=== PATIENT | female | born 1970 | race American Indian/Alaskan Native ===

== ENCOUNTER 2017-02-18 06:23 | Day surgery (SDC) | payer MEDICAID ==
--- NOTE | 2017-02-18 07:31 | Anesthesia Day of Surgery ---
Anesthesia Day of Surgery - Day of Surgery Patient Examined: Yes Patient H&P Reviewed: Yes Patient is NPO: Yes
--- NOTE | 2017-02-18 07:31 | Anesthesia Consultation ---
Anesthesia Consult and Med Hx Date of service: 02/18/17 - Airway Anesthetic Teeth Evaluation: Good ROM Head & Neck: Adequate Mental/Hyoid Distance: Adequate Mallampati Class: Class II Intubation Access Assessment: Probably Good - Pulmonary Exam CTA: Yes - Cardiac Exam Cardiac Exam: RRR - Pre-Operative Health Status ASA Pre-Surgery Classification: ASA3 Proposed Anesthetic Plan: MAC - Pulmonary Hx Smoking: No SOB: Yes (upon exertion) Hx Sleep Apnea: No - Cardiovascular System Hx Hypertension: No Hx Peripheral Vascular Disease: No (LE swelling) - Central Nervous System Hx Back Pain: Yes Hx Psychiatric Problems: Yes (anxiety, suicidal thoughts, depression, OCD) - Gastrointestinal Hx Gastroesophageal Reflux Disease: Yes - Endocrine Hx Renal Disease: No Hx Insulin Dependent Diabetes: No - Hematic Hx Anemia: No Hx Sickle Cell Disease: No - Other Systems Hx Alcohol Use: No Hx Substance Use: No Hx Cancer: No Hx Obesity: Yes
[2017-02-18] MEDS ORDERED: DIPRIVAN 10 MG/ML IV ONE ×3 (07:35)
[2017-02-18] MEDS ORDERED: NACL 0.9% 1000 ML ONE (08:00)
[2017-02-18] MEDS ORDERED: XYLOCAINE MPF 2% ONE (08:30)
[2017-02-18] MEDS ORDERED: NACL 0.9% 1000 ML 1,000 ML IV SCH (09:00)
--- NOTE | 2017-02-18 09:01 | Discharge Summary ---
Providers - Providers Attending physician: DEONTE CASTILLO Hospitalization Condition: Good Procedures: EGD Hospital course: Pt underwent EGD and tolerated it. She was discharged home. Disposition: DC-01 TO HOME OR SELFCARE Core Measure Documentation - Palliative Care Palliative Care/ Comfort Measures: Not Applicable - Core Measures Any of the following diagnoses?: none Exam - Physical Exam Narrative exam: no change from previous - Constitutional Vitals: Temp Pulse Resp BP Pulse Ox 97.9 F 69 22 100/63 100 02/18/17 08:29 02/18/17 08:44 02/18/17 08:44 02/18/17 08:44 02/18/17 08:44 Plan Diet: other (high protein low carb)
--- NOTE | 2017-02-18 09:03 | Operative Report ---
Operative Report Operative Report: OPERATIVE REPORT - EGD DATE 02/18/17 SURGERY: Upper endoscopy. SURGEON: Dr. Jones ANIMAL SCIENTIST: Ladi Montoya DO PRE OP DX: dyspepsia POST OP DX: small hiatal hernia TYPE OF ANESTHESIA: MAC. ESTIMATED BLOOD LOSS: None. COMPLICATIONS: None. SPECIMENS REMOVED: None. FINDINGS: 1. Small hiatal hernia. 2. Otherwise, normal esophagus, stomach INDICATIONS:INDICATION FOR PROCEDURE: Patient is a 47-year-old female with a long history of morbid obesity. She is planned to have a weight loss procedure and is here for preoperative planning EGD to asses the anatomy of her stomach. PROCEDURE DETAILS: After consent was reviewed, patient was taken back to the operating room where patient was placed in the left lateral decubitus position and a bite block was placed in the mouth. After a time-out was called, MAC anesthesia was initiated. I then passed the endoscope into her oropharynx, into her esophagus, visualized the entire esophagus, which was all within normal limits. I then visualized the stomach and there were no abnormalities I could clearly visualize. I then retroflexed the scope in the stomach and visualized the hiatus and I could see a small hiatal hernia. I then desufflated the stomach and removed the endoscope. Patient tolerated procedure well and was transferred to recovery room in good and stable condition.
[2017-02-18 09:05] VITALS: BP 120/76
--- NOTE | 2017-02-18 12:46 | Post Anesthesia Evaluation ---
- Post Anesthesia Evaluation Patient Participated: Yes Airway Patent: Yes Stable Respiratory Function: Yes Nausea/Vomiting: No Temp > 96.8F: Yes Pain Manageable: Yes Adequeate Hydration: Yes Anesthesia Complications: No Block Receding Appropriately: Not Applicable Patient on Ventilator: No
== END 2017-02-18 06:24 | disposition home or self-care (01) ==
LOC: GIO 06:23
PROVIDERS: ATTEND Specialist
DX: K44.9 Diaphragmatic hernia without obstruction or gangrene (principal); E66.01 Morbid (severe) obesity due to excess calories; F41.9 Anxiety disorder, unspecified; K21.9 Gastro-esophageal reflux disease without esophagitis; F32.9 Major depressive disorder, single episode, unspecified; M19.90 Unspecified osteoarthritis, unspecified site; Z90.710 Acquired absence of both cervix and uterus; Z98.890 Other specified postprocedural states; Z68.42 Body mass index [BMI] 45.0-49.9, adult
CPT/HCPCS: 43235; J2704; J7030

== ENCOUNTER 2017-02-25 09:43 | Inpatient (IN) | payer MEDICAID ==
--- NOTE | 2017-02-18 10:12 | Anesthesia Consultation ---
Anesthesia Consult and Med Hx Date of service: 02/18/17 - Airway Anesthetic Teeth Evaluation: Good ROM Head & Neck: Adequate Mental/Hyoid Distance: Adequate Mallampati Class: Class II Intubation Access Assessment: Probably Good - Pulmonary Exam CTA: Yes - Cardiac Exam Cardiac Exam: RRR - Pre-Operative Health Status ASA Pre-Surgery Classification: ASA2 Proposed Anesthetic Plan: General - Pulmonary Hx Smoking: No Hx Sleep Apnea: Yes - Cardiovascular System Hx Hypertension: No - Endocrine Hx Non-Insulin Dependent Diabetes: No - Other Systems Hx Obesity: Yes
[~2017-02-25 09:43] MED LIST: ANCEF/STERILE WATER 2 GM/20 ML 2 GM/20 ML SYRINGE IV NR; APRESOLINE IV PRN; DILAUDID IV PRN; FLAGYL 500 MG/100 ML 500 MG/100 ML BAG IV NR; LACTATED RINGERS 1,000 ML IV SCH; LOVENOX SUB-Q NR; NACL 0.9% IR ONE; NORCO PO PRN; PEPCID IV NR; REGLAN IV PRN; TRANSDERM-SCOP TD NR; VERSED IV NR; XYLOCAINE 1% 20 mL INFILTRATI ONE; ZOFRAN IV PRN
[2017-02-25] MEDS ORDERED: NACL BACTERIOSTATIC INFILTRATI ONE (10:34)
[2017-02-25 10:52] LABS: Basophils % (Auto) 0.9 % (0.0-1.8); Eosinophils % (Auto) 2.2 % (0.0-4.3); Hematocrit 39.4 % (30.3-42.9); Hemoglobin 13.9 gm/dl (10.1-14.3); Mean Corpuscular HGB Conc 35 % (30-34); Mean Corpuscular Hemoglobin 31 pg (28-32); Mean Corpuscular Volume 89 fl (79-97); Platelet Count 262 K/mm3 (140-440); Red Blood Count 4.42 M/mm3 (3.65-5.03); Red Cell Distribution Width 13.9 % (13.2-15.2); White Blood Count 3.8 K/mm3 (4.5-11.0)
[2017-02-25 11:14] LABS: Alanine Aminotransferase 13 units/L (7-56); Albumin 3.6 g/dL (3.9-5); Alkaline Phosphatase 62 units/L (35-129); Anion Gap 14 mmol/L; BUN/Creatinine Ratio 10; Blood Urea Nitrogen 6 mg/dL (7-17); Calcium 8.5 mg/dL (8.4-10.2); Carbon Dioxide 27 mmol/L (22-30); Chloride 102.5 mmol/L (98-107); Glucose 107 mg/dL (65-100); Sodium 139 mmol/L (137-145); Total Protein 7.2 g/dL (6.3-8.2)
[2017-02-25] MEDS ORDERED: DIPRIVAN 10 MG/ML IV ONE (12:32)
[2017-02-25] MEDS ORDERED: DILAUDID ONE (12:33)
--- NOTE | 2017-02-25 12:42 | Anesthesia Day of Surgery ---
Anesthesia Day of Surgery - Day of Surgery Patient Examined: Yes Patient H&P Reviewed: Yes Patient is NPO: Yes
[2017-02-25] MEDS ORDERED: MARCAINE 0.5% 30 ML INFILTRATI ONE (12:51)
[2017-02-25] MEDS ORDERED: XYLOCAINE 1% 20 mL ONE (12:51)
[2017-02-25] MEDS ORDERED: NACL 0.9% IR ONE (12:56)
[2017-02-25] MEDS ORDERED: MARCAINE 0.5% INFILTRATI ONE (12:56)
[2017-02-25] MEDS ORDERED: XYLOCAINE 1% 20 mL INFILTRATI ONE (12:56)
[2017-02-25 13:08] LABS: Bilirubin,Urine NEG (Negative); Blood,Urine NEG (Negative); Ketones,Urine NEG (Negative); Leukocyte Esterase,Urine NEG (Negative); Mucus,Urine FEW /HPF; Nitrite,Urine NEG (Negative); Protein,Urine <15 mg/dL mg/dL (Negative); Urobilinogen,Urine < 2.0 mg/dL (<2.0)
[2017-02-25 13:16] LABS: WBC,Urine < 1.0 /HPF (0.0-6.0)
[2017-02-25] MEDS ORDERED: DECADRON ONE (13:33)
[2017-02-25] MEDS ORDERED: XYLOCAINE MPF 2% ONE (13:33)
[2017-02-25] MEDS ORDERED: ZEMURON IV ONE ×2 (13:33→14:29)
[2017-02-25] MEDS ORDERED: NEOSTIGMINE ONE ×2 (14:12→14:53)
[2017-02-25] MEDS ORDERED: LACTATED RINGERS 1,000 ML ONE (14:29)
[2017-02-25] MEDS ORDERED: NEO SYNEPHRINE/NS Syringe(OR USE) IV ONE (14:30)
[2017-02-25] MEDS ORDERED: ROBINUL ONE ×2 (14:52)
[2017-02-25] MEDS ORDERED: ZOFRAN ONE (14:53)
[2017-02-25] MEDS ORDERED: TORADOL ONE (14:53)
--- NOTE | 2017-02-25 17:17 | Post Anesthesia Evaluation ---
- Post Anesthesia Evaluation Patient Participated: Yes Airway Patent: Yes Stable Respiratory Function: Yes Nausea/Vomiting: No Temp > 96.8F: Yes Pain Manageable: Yes Adequeate Hydration: Yes Anesthesia Complications: No
[2017-02-25] MEDS: MYLICON PO PRN ×2 (18:03→22:59)
--- NOTE | 2017-02-25 19:53 | Operative Report ---
Operative Report Operative Report: Operative Report DATE OF PROCEDURE: 02/25/17 PREOPERATIVE DIAGNOSES: Morbid obesity, hiatal hernia POSTOPERATIVE DIAGNOSES: 1.same as pre-op SURGEON: Dr. Jones COCKTAIL WAITRESS: iDlip Livingston DO PROCEDURE: 1. laparoscopic sleeve gastrectomy 2. laparoscopic hiatal hernia repair 3.Lysis of adhesions ANESTHESIA: General. ESTIMATED BLOOD LOSS: <5 mL. COMPLICATIONS: None. SPECIMEN: Partial gastrectomy. FINDINGS: 1. hiatal hernia 2. adhesions 3. large infrabdominal/pelvic hernia. INDICATION FOR PROCEDURE: Patient is a 47-year-old female with a long history of morbid obesity. She has tried multiple efforts at weight loss without ocean transportation intermediary success. She is here today for sleeve gastrectomy. She has a hx of hysterectomy and subsequent umbilical hernia that was repaired with mesh. PROCEDURE IN DETAIL: After consent was reviewed, patient was taken back to the operating room, where patient was placed supine on the bed with both arms out. The patient's legs were doubly strapped to the bed. Patient had a foot board in place. Patient had a body warmer placed by anesthesia. Patient was then prepped and draped in normal sterile surgical fashion. After a time-out was called, I made a stab incision in the left upper quadrant umbilicus and placed a Veress needle through this incision and insufflated the abdomen to 18 mmHg pressure. Once the abdomen was adequately insuflated I placed a 5mm trocar into the site of the previous veress needle. I then placed a 45-degree scope through this port and inspected the abdomen. Omental adhesions were noted along the anterior abdominal wall attached to the previous placed mesh. Also noted was a large inferior abdominal wall hernia near the pelvis. There was no injury on entry of the abdomen. I then placed two 5-mm ports in the right upper quadrant, one along the anterior axillary line and 1 subxiphoid below the costovertebral angle. I then placed left upper quadrant port along the anterior axillary line in a similar fashion. I then placed the liver retractor through the subxiphoid port. The adhesions were taken down via a ligasure device without any injury to the surrounding bowel. Once the adhesions were removed I inserted a 15mm port at the umbilicus. Next I placed the patient in full reverse Trendelenburg. The right and left crura were skeletonized accentuating a small hiatal hernia. An anterior cruraplasty was perfromed with a figure-of-8 stitch using [id number] with 0 ethibond suture to reapproximate the crura. I then identified the pylorus and then counted off 6cm from the pylorus. I then used a LigaSure cutting device to enter into the lesser sac. At that point and then I took down the short gastrics all the way up to the left rachell. Then I had anesthesia pass down a 36-Swiss bougie along the lesser curvature of the stomach. I made sure everything else was out of the abdomen except the bougie. I then created my gastric sleeve using a 60-mm laparoscopic stapler. . The sleeve looked good without any twisting or torsion. I then had anesthesia to remove the bougie. Hemostasis was obtained along the staple line. I then used Tiseel along the entirety of the staple line and some on the liver. I then removed liver grasper and took it off the field. The stomach was placed in an endocath bag then I then removed the stomach through the 15-mm umbilcal port. I then closed that fascia with a #1 PDS in a [id number] fashion. I then desufflated the abdomen and then removed all port sites. I then closed the incisions with 4-0 Monocryl in subcuticular fashion. I then dressed the wounds with steristrips and covered with dressings. Patient tolerated the procedure well and was transferred to recovery room in good and stable condition.
[2017-02-25] MEDS ORDERED: ATIVAN IV PRN (20:20)
[2017-02-25] MEDS: MORPHINE IV PRN (23:06)
[2017-02-26] MEDS: MYLICON PO PRN ×2 (09:22→15:40)
[2017-02-26] MEDS ORDERED: LOVENOX SUB-Q SCH (10:00)
[2017-02-26] MEDS: MORPHINE IV PRN (11:35)
[2017-02-26 13:22] LABS: Basophils % (Auto) 0.3 % (0.0-1.8); Hematocrit 37.6 % (30.3-42.9); Hemoglobin 12.4 gm/dl (10.1-14.3); Mean Corpuscular HGB Conc 33 % (30-34); Mean Corpuscular Hemoglobin 30 pg (28-32); Mean Corpuscular Volume 90 fl (79-97); Platelet Count 261 K/mm3 (140-440); Red Blood Count 4.16 M/mm3 (3.65-5.03); Red Cell Distribution Width 13.5 % (13.2-15.2); White Blood Count 6.4 K/mm3 (4.5-11.0)
[2017-02-26 13:50] LABS: Alanine Aminotransferase 20 units/L (7-56); Albumin 3.4 g/dL (3.9-5); Albumin/Globulin Ratio 1.1 %; Alkaline Phosphatase 53 units/L (35-129); Anion Gap 14 mmol/L; BUN/Creatinine Ratio 10; Blood Urea Nitrogen 8 mg/dL (7-17); Calcium 8.3 mg/dL (8.4-10.2); Carbon Dioxide 25 mmol/L (22-30); Chloride 101.9 mmol/L (98-107); Glucose 98 mg/dL (65-100); Potassium 3.7 mmol/L (3.6-5.0); Sodium 137 mmol/L (137-145); Total Protein 6.4 g/dL (6.3-8.2)
--- NOTE | 2017-02-26 15:39 | Discharge Summary ---
Providers - Providers Date of Admission: 02/25/17 09:55 Attending physician: DEONTE CASTILLO Primary care physician: RICHARD BATES Hospitalization Procedures: laparoscopic sleeve gastrectomy and hiatal hernia repair. Hospital course: 47 y.o. F admitted for laparoscopic sleeve gastrectomy and hiatal hernia repair. Pt tolerated the procedure well. On POD 1 she was able to tolerate liquids and ambulate. She was discharged on POD 1 without issues. Disposition: DC-01 TO HOME OR SELFCARE Core Measure Documentation - Palliative Care Palliative Care/ Comfort Measures: Not Applicable - Core Measures Any of the following diagnoses?: none Exam - Physical Exam Narrative exam: abd: soft, tender at incision sites. dressings: blood tinged. no active bleeding. no rebound no guarding. - Constitutional Vitals: Temp Pulse Resp BP Pulse Ox 97.9 F 63 18 113/66 100 02/26/17 09:24 02/26/17 09:24 02/26/17 09:24 02/26/17 09:24 02/26/17 09:10 Plan Activity: other (no lifting >15lbs) Diet: clear liquids Wound: keep clean and dry Additional Instructions: Follow up for wound care appointment. Follow up with: RICHARD BATES MD [Primary Care Provider] - 7 Days
[2017-02-26 16:02] VITALS: BP 108/70
[2017-02-28] MEDS ORDERED: TRANSDERM-SCOP TD SCH (10:00)
== END 2017-02-26 16:30 | disposition home or self-care (01) | DRG 621 ==
LOC: 3A 09:55 → 3B-SURG 17:34
PROVIDERS: ADMIT Specialist; ATTEND Specialist
PROC: 0DB64Z3 Excision of Stomach, Percutaneous Endoscopic Approach, Vertical (ICD-10-PCS; principal; 2017-02-25)
PROC: 0BQT4ZZ Repair Diaphragm, Percutaneous Endoscopic Approach (ICD-10-PCS; 2017-02-25)
DX: E66.01 Morbid (severe) obesity due to excess calories (principal); Z90.710 Acquired absence of both cervix and uterus; Z68.42 Body mass index [BMI] 45.0-49.9, adult; K66.0 Peritoneal adhesions (postprocedural) (postinfection); K44.9 Diaphragmatic hernia without obstruction or gangrene
CPT/HCPCS: 36415; 80053; 81001; 85025; 88307; 94760; C9250; J0690; J1100; J1170; J1650; J1885; J2250; J2270; J2370; J2405; J2704; J2710; J2765; J7120